=== PATIENT | male | born 1970 | race Caucasian/White ===

== ENCOUNTER → 2019-04-09 | Outpatient (CLI) | payer BC ==
[~2019-04-09] MED LIST: CALC600T4 PO; HYDR-2155 PO; PRED20TA PO; RANI150T2 PO; TRAM50TA PO
[2019-04-09 09:00] VITALS: BP 130/86
== END | disposition home or self-care (01) ==
LOC: SURG 08:46
PROVIDERS: ATTEND Anesthesiology
DX: M79.18 Myalgia, other site (principal); M79.2 Neuralgia and neuritis, unspecified; Z98.890 Other specified postprocedural states
CPT/HCPCS: 99204

== ENCOUNTER 2021-10-06 10:28 | Emergency (ER) | payer BC, OTHER ==
[2019-04-09 09:00] VITALS: BP 130/86
[~2021-10-06] VITALS: Ht 170.2 cm; Wt 86.5 kg
[~2021-10-06 10:28] MED LIST changes: -CALC600T4 PO; +CALC600T60 PO
--- NOTE | 2021-10-06 10:55 | PHYS DOC ---
Past History Past Medical History: No Pertinent History Past Surgical History: Appendectomy, Knee Replacement Additional Past Surgical Histo: right knee Smoking: Non-smoker Alcohol Use: Occasionally Drug Use: None General Adult EDM: Chief Complaint: LACERATION/AVULSION HPI: HPI: Patient is a 51-year-old male who presents to the emergency department for a laceration to the dorsal aspect of his left hand that occurred today at work. Patient reports he has been intending on ibuprofen his hand moved and he cut it. Bleeding is controlled. Patient denies any decreased range of motion or decreased sensation in his finger. He is unsure of his last tetanus shot. Review of Systems: Review of Systems: Musculoskeletal: see HPI Integument: see HPI Neurologic: see HPI Allergies: Allergies: Allergies Coded Allergies Type Severity Reaction Last Updated Verified Penicillins Allergy Intermediate 09/25/13 Yes codeine Allergy Intermediate 04/09/19 Yes Physical Exam: PE: Constitutional: Well developed, well nourished, no acute distress, non-toxic appearance. [] HENT: Normocephalic, atraumatic, bilateral external ears normal, oropharynx moist, no oral exudates, nose normal. [] Eyes: PERRL, EOMI, conjunctiva normal, no discharge. [] Neck: Normal range of motion, no stridor Cardiovascular: Normal peripheral perfusion Lungs & Thorax: Normal work of breathing Abdomen: Soft and flat Skin: Warm, dry, no erythema, no rash, 3 cm laceration noted to the dorsal aspect of patient's left hand proximal to his second finger, no visible foreign bodies or tendon involvement, range of motion intact, neuro intact, no active bleeding Back: Normal range of motion Extremities: No tenderness, no cyanosis, no clubbing, ROM intact, no edema. [] Neurologic: Alert and oriented X 3, normal motor function, normal sensory function, no focal deficits noted. [] Psychologic: Affect normal, judgement normal, mood normal. [] Current Patient Data: Vital Signs: Vital Signs Date Time Temp Pulse Resp B/P (MAP) Pulse Ox O2 Delivery O2 Flow Rate FiO2 10/06/21 10:36 98.5 18 16 142/95 (111) 98 Room Air EKG: EKG: [] Radiology/Procedures: Radiology/Procedures: [] Heart Score: C/O Chest Pain: N/A Risk Factors: Risk Factors: DM, Current or recent (<one month) smoker, HTN, HLP, family history of CAD, obesity. Risk Scores: Score 0 - 3: 2.5% MACE over next 6 weeks - Discharge Home Score 4 - 6: 20.3% MACE over next 6 weeks - Admit for Clinical Observation Score 7 - 10: 72.7% MACE over next 6 weeks - Early Invasive Strategies Course & Med Decision Making: Course & Med Decision Making Pertinent Labs and Imaging studies reviewed. (See chart for details) [] Patient presents to the emergency department for a laceration to the dorsal aspect of his hand. Laceration was cleansed and irrigated. The laceration was repaired. No tendon involvement, no visible foreign bodies. Neurovascularly intact. Patient tolerated procedure. Tetanus was updated. Patient educated on wound care and suture removal. I discussed with patient all findings and diagnostic testing as well as the need to follow-up with PCP for further evaluation and treatment or return to the ER if any new or worsening symptoms. Strict return precautions were also discussed at length. Patient voiced understanding and agreement with the plan. Patient is hemodynamically stable at the time of disposition. Dragon Disclaimer: Keek Disclaimer: This electronic medical record was generated, in whole or in part, using a voice recognition dictation system. Laceration Repair Lac Repair Time:1100 Confirmed: Patient, procedure, site, and site correct Consent: Patient has given verbal consent Laceration location: Dorsal aspect of left hand proximal to second digit Shape: Linear Depth: With subcu Details: Clean with no foreign material Neurovascular, tendon exam: Intact Anesthesia: 1% lidocaine Preparation: Sterile field established Irrigation: Wound irrigated with 150 cc of normal saline Skin closure: Simple interrupted sutures placed Size of suture: 6-0 Ethilon Number of sutures: 7 Complexity: Single layer Post procedure exam: Circulation, motor, sensory exam intact, bleeding control led. Complications: None Patient tolerated: Well Performed by: self Total time: 20 minutes Departure Departure: Impression: Primary Impression: Laceration Disposition: 01 HOME / SELF CARE / HOMELESS Condition: GOOD Referrals: BENI LOBO MD (PCP) Patient Instructions: Laceration Care, Adult Additional Instructions: You were seen in the emergency department today for a laceration which was repaired with sutures. Please keep this area clean and dry. You can wash with mild soap and warm water. You can apply Polysporin or triple antibiotic ointment to the laceration site and keep a bandage in place. Please change the bandage twice a day and when soiled. You can take Tylenol and ibuprofen at home for your pain. Monitor for any signs of infection which include redness, warmth, swelling or drainage. You will need to have your sutures removed in 7 to 10 days. You can return to the emergency department or follow-up with your primary care provider to have these taken out. Return to the emergency department if you develop any signs of infection as stated above, high fevers refractory to treatment, intractable nausea or vomiting, decreased range of motion or decreased sensation in your hand. JACOB [employer]LS [employer] Oct 06, 2021 10:55
[2021-10-06] MEDS ORDERED: DIPHTH,PERTUSS(ACELL),TET TOX 0.5 ML DISP.SYRIN. VAX IM ONE (11:00)
[2021-10-06] MEDS ORDERED: LIDOCAINE 1% Multi-Dose 20 ML VIAL. IJ ONE (11:00)
== END 2021-10-06 11:35 | disposition home or self-care (01) ==
LOC: ER 10:28
DX: S61.412A Laceration without foreign body of left hand, initial encounter (principal); Z88.0 Allergy status to penicillin; Z88.5 Allergy status to narcotic agent; X58.XXXA Exposure to other specified factors, initial encounter; Y93.89 Activity, other specified; Y92.89 Other specified places as the place of occurrence of the external cause; Y99.8 Other external cause status
CPT/HCPCS: 12002; 90471; 90715; 99283